=== PATIENT | male | born 1965 | race Caucasian/White ===

== ENCOUNTER 2017-12-02 21:15 | Emergency (ER) | payer OTHER ==
[~2017-12-02] VITALS: Ht 177.8 cm; Wt 95.5 kg
[~2017-12-02 21:15] MED LIST: CLOZ100T PO; LISI-725 PO; MARIJUANA PO; OMEP20CA9 PO; QUET300T2 PO
[2017-12-02 21:38] VITALS: TEMP 36.7; Ht 177.8 cm; Wt 95.5 kg
--- NOTE | 2017-12-02 22:17 | EMERGENCY ROOM VISIT NOTE ---
History Report prepared by Marcello: Nadia Sharif Under the Supervision of: Dr. Bridgett De Anda M.D. First contact with patient: 21:43 Chief Complaint: MENTAL HEALTH EVALUATION Stated Complaint: MHID History of Present Illness The patient is a 52 year old male who presents to the Emergency Room with complaints of a mental health evaluation today. He reports that he is bipolar. The patient states that he wants to harm people that he refers to as "pawns" and "punks." The patient states that he knows a lot of community people do not like him. He reports that he sometimes screams racial slurs in his bipolar rage and that people [place]. The patient states that he gets "pissed off" because he always has people pursuing him. The patient states that he is preparing to fight back if anyone tries to attack him. He states that he is "blood thirsty" and that he wants to kill anyone who tries to attack him. The patient states that people are paranoid about him and assume that if he has a duffel bag that he has a gun in it and will "go on a shooting spree." The patient reports that he cannot settle down anywhere because people are after him and hate him everywhere. 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 He states that he last used crack last week. The patient reports that he is on Seroquel. He denies cigarette use and reports occasional alcohol use. Source of History: patient Onset: today Position: other (global) Quality: other (mental health evaluation ) Timing: constant Review of Systems See HPI for pertinent positives & negatives. A total of 10 systems reviewed and were otherwise negative. Past Medical & Surgical Medical Problems: (1) Bipolar disorder (2) Hypertension Family History Patient reports no known family medical history. Social History Smoking Status: Current Every Day Smoker Alcohol Use: heavy Drug Use: cocaine, marijuana Marital Status: single Housing Status: other Occupation Status: disabled Current/Historical Medications Scheduled Gemfibrozil (Gemfibrozil), 600 MG PO DAILY Lisinopril (Zestril), 20 MG PO DAILY Omeprazole (Prilosec), 20 MG PO DAILY Quetiapine Fumarate (Seroquel Xr), 300 MG PO QPM [Marijuana], 1 DOSE PO DIRECTED Allergies Coded Allergies: No Known Allergies (Verified , 12/02/17) Physical Exam Vital Signs Date Time Temp Pulse Resp B/P (MAP) Pulse Ox O2 Delivery O2 Flow Rate FiO2 12/03/17 02:43 68 18 122/68 99 12/02/17 23:38 77 20 99/60 98 Room Air 12/02/17 21:38 36.7 82 16 122/98 98 Room Air Physical Exam Vital signs reviewed. General: Agitated male, yelling and swearing, threatening to murder those that are threatening him. HEENT: No scleral icterus, PERRLA, neck supple. Atraumatic. Cardiovascular: Regular rate and rhythm, no extra sounds. Pulmonary: Clear to auscultation bilaterally, normal work of breathing. Abdomen: Soft, nontender, nondistended, positive bowel sounds. Musculoskeletal: Atraumatic, no peripheral edema. Neurologic: Patient awake alert and oriented x 3, full strength in all 4 extremities. Cranial nerves 2 through 12 grossly intact. Skin: Warm, dry, no rash Psych: Positive HI, negative SI. Medical Decision & Procedures Laboratory Results 12/02/17 21:36 Red Blood Count 5.28, Mean Corpuscular Volume 86.4, Mean Corpuscular Hemoglobin 30.9, Mean Corpuscular Hemoglobin Concent 35.7, Mean Platelet Volume 9.9, Neutrophils (%) (Auto) 21.2, Lymphocytes (%) (Auto) 74.0, Monocytes (%) (Auto) 3.4, Eosinophils (%) (Auto) 0.8, Basophils (%) (Auto) 0.3, Neutrophils # (Auto) 3.39, Lymphocytes # (Auto) 11.82, Monocytes # (Auto) 0.55, Eosinophils # (Auto) 0.12, Basophils # (Auto) 0.04 12/02/17 21:36 Test 12/02/17 21:36 12/02/17 22:40 White Blood Count 15.97 K/uL (4.8-10.8) Red Blood Count 5.28 M/uL (4.7-6.1) Hemoglobin 16.3 g/dL (14.0-18.0) Hematocrit 45.6 % (42-52) Mean Corpuscular Volume 86.4 fL (80-100) Mean Corpuscular Hemoglobin 30.9 pg (25-34) Mean Corpuscular Hemoglobin Concent 35.7 g/dl (32-36) Platelet Count 293 K/uL (130-400) Mean Platelet Volume 9.9 fL (7.4-10.4) Neutrophils (%) (Auto) 21.2 % Lymphocytes (%) (Auto) 74.0 % Monocytes (%) (Auto) 3.4 % Eosinophils (%) (Auto) 0.8 % Basophils (%) (Auto) 0.3 % Neutrophils # (Auto) 3.39 K/uL (1.4-6.5) Lymphocytes # (Auto) 11.82 K/uL (1.2-3.4) Monocytes # (Auto) 0.55 K/uL (0.11-0.59) Eosinophils # (Auto) 0.12 K/uL (0-0.5) Basophils # (Auto) 0.04 K/uL (0-0.2) RDW Standard Deviation 40.0 fL (36.4-46.3) RDW Coefficient of Variation 12.6 % (11.5-14.5) Immature Granulocyte % (Auto) 0.3 % Immature Granulocyte # (Auto) 0.05 K/uL (0.00-0.02) Smudge Cells PRESENT Blood Smear Review Anion Gap 9.0 mmol/L (3-11) Est Creatinine Clear Calc Drug Dose 86.4 ml/min Estimated GFR () 83.5 Estimated GFR (Non- 72.0 BUN/Creatinine Ratio 29.7 (10-20) Calcium Level 9.6 mg/dl (8.5-10.1) Total Bilirubin 0.6 mg/dl (0.2-1) Aspartate Amino Transf (AST/SGOT) 40 U/L (15-37) Alanine Aminotransferase (ALT/SGPT) 64 U/L (12-78) Alkaline Phosphatase 69 U/L (45-117) Total Protein 8.1 gm/dl (6.4-8.2) Albumin 4.5 gm/dl (3.4-5.0) Globulin 3.6 gm/dl (2.5-4.0) Albumin/Globulin Ratio 1.3 (0.9-2) Thyroid Stimulating Hormone (TSH) 3.160 uIu/ml (0.300-4.500) Salicylates Level < 1.7 mg/dl (2.8-20) Acetaminophen Level < 2 ug/ml (10-30) Ethyl Alcohol mg/dL < 3.0 mg/dl (0-3) Urine Color YELLOW Urine Appearance CLEAR (CLEAR) Urine pH 5.5 (4.5-7.5) Urine Specific [place] 1.024 (1.000-1.030) Urine Protein NEG (NEG) Urine Glucose (UA) NEG (NEG) Urine Ketones NEG (NEG) Urine Occult Blood NEG (NEG) Urine Nitrite NEG (NEG) Urine Bilirubin NEG (NEG) Urine Urobilinogen NEG (NEG) Urine Leukocyte Esterase NEG (NEG) Urine Opiates Screen NEG (NEG) Urine Methadone, Qualitative NEG (NEG) Urine Barbiturates NEG (NEG) Urine Phencyclidine (PCP) Level NEG (NEG) Ur Amphetamine/Methamphetamine NEG (NEG) MDMA (Ecstasy) Screen NEG (NEG) Urine Benzodiazepines Screen NEG (NEG) Urine Cocaine Metabolite NEG (NEG) Urine Marijuana (THC) NEG (NEG) Laboratory results per my review. ED Course 2204: Past medical records reviewed. The patient was evaluated in room A6. A complete history and physical examination was performed. 0130: The patient was signed out to Dr. Eagle. Medical Decision Differential diagnosis: Etiologies such as mood disorder, infection, hypoglycemia, electrolyte abnormalities, cardiac sources, intracerebral event, toxicologic, neurologic, as well as others were entertained. This pt was evaluated and appeared to be in no distress. He was medically cleared and evaluated by ed case manager. Pt was voluntary for admission and accepted to the [facility]. Secure transport was arranged. Medication Reconcilliation Current Medication List: was personally reviewed by me Blood Pressure Screening Patient's blood pressure: Normal blood pressure Impression Primary Impression: Mood disorder Additional Impressions: Homicidal ideation Suicidal ideation Scribe Attestation The scribe's documentation has been prepared under my direction and personally reviewed by me in its entirety. I confirm that the note above accurately reflects all work, treatment, procedures, and medical decision making performed by me. Departure Information Dispostion Still a Patient Referrals No Doctor, Assigned (PCP) Patient Instructions My [facility] Health Problem Qualifiers
[2017-12-02] MEDS ORDERED: LPD600 PO (22:18)
[2017-12-02 22:29] LABS: ALBUMIN 4.5 gm/dl (3.4-5.0); CALCIUM 9.6 mg/dl (8.5-10.1); CREATININE 1.16 mg/dl (0.60-1.40); POTASSIUM 3.8 mmol/L (3.5-5.1)
[2017-12-02 22:37] LABS: HEMATOCRIT 45.6 % (42-52); HEMOGLOBIN 16.3 g/dL (14.0-18.0); MEAN CELL VOLUME 86.4 fL (80-100); MEAN CORPUSCULAR HEMOGLOBIN 30.9 pg (25-34); MEAN CORPUSCULAR HGB CONC 35.7 g/dl (32-36); MEAN PLATELET VOLUME 9.9 fL (7.4-10.4); PLATELET COUNT 293 K/uL (130-400); RED CELL DISTRIBUTION WIDTH CV 12.6 % (11.5-14.5); WHITE BLOOD COUNT 15.97 K/uL (4.8-10.8)
[2017-12-02 22:39] LABS: TOTAL PROTEIN 8.1 gm/dl (6.4-8.2)
[2017-12-02 23:32] LABS: BASO % 0.3 %; BASO ABS # 0.04 K/uL (0-0.2); EOS % 0.8 %; EOS ABS # 0.12 K/uL (0-0.5); IG# 0.05 K/uL (0.00-0.02); LYMPH ABS # 11.82 K/uL (1.2-3.4); MONO % 3.4 %; MONO ABS # 0.55 K/uL (0.11-0.59); NEUT % 21.2 %; NEUT ABS # 3.39 K/uL (1.4-6.5)
[2017-12-03 02:43] VITALS: BP 122/68; PULSE 68; O2SAT 99
== END 2017-12-03 02:43 ==
LOC: EDBD 21:15 → C.EDA 21:16
DX: F39 Unspecified mood [affective] disorder (principal); R45.850 Homicidal ideations; R45.851 Suicidal ideations

== ENCOUNTER 2018-06-18 20:49 | Emergency (ER) | payer OTHER ==
[~2018-06-18] VITALS: Ht 177.8 cm; Wt 93.6 kg
[~2018-06-18 20:49] MED LIST changes: -CLOZ100T PO; +GEMF600T3 PO; -LISI-725 PO; +LISI20TA3 PO; -MARIJUANA PO; -OMEP20CA9 PO; +PRLSR20 PO; -QUET300T2 PO; +QUET400T2 PO
[2018-06-18 20:53] VITALS: TEMP 36.4; Ht 177.8 cm; Wt 93.6 kg
[2018-06-18 21:57] LABS: HEMATOCRIT 48.1 % (42-52); HEMOGLOBIN 17.2 g/dL (14.0-18.0); MEAN CELL VOLUME 84.4 fL (80-100); MEAN CORPUSCULAR HEMOGLOBIN 30.2 pg (25-34); MEAN CORPUSCULAR HGB CONC 35.8 g/dl (32-36); MEAN PLATELET VOLUME 9.7 fL (7.4-10.4); PLATELET COUNT 249 K/uL (130-400); WHITE BLOOD COUNT 16.25 K/uL (4.8-10.8)
[2018-06-18 22:23] LABS: ALBUMIN 4.6 gm/dl (3.4-5.0); CALCIUM 10.2 mg/dl (8.5-10.1); CREATININE 1.28 mg/dl (0.60-1.40); POTASSIUM 3.8 mmol/L (3.5-5.1); TOTAL PROTEIN 8.2 gm/dl (6.4-8.2)
[2018-06-18 22:39] VITALS: BP 117/70; PULSE 84; O2SAT 98
[2018-06-18 22:44] LABS: BASO % 0.3 %; BASO ABS # 0.05 K/uL (0-0.2); EOS % 0.6 %; IG# 0.06 K/uL (0.00-0.02); LYMPH % 58.2 %; LYMPH ABS # 9.45 K/uL (1.2-3.4); MONO % 3.7 %; NEUT % 36.8 %; NEUT ABS # 5.99 K/uL (1.4-6.5)
[2018-06-18] MEDS ORDERED: LPD600 PO (22:46)
[2018-06-18] MEDS ORDERED: QUET1TAB10 PO (22:48)
--- NOTE | 2018-06-19 00:19 | EMERGENCY ROOM VISIT NOTE ---
History Report prepared by Marcello: Raleigh Crump Under the Supervision of: Dr. Ricardo Ramirez M.D. First contact with patient: 21:18 Chief Complaint: UNABLE TO VOID Stated Complaint: CANT URINATE, TOOK FAT BURNER PILLS 3X DAYS Nursing Triage Summary: Patient reports taking new suppliments for exercise and weight loss recently. Patient recently noticed a decrease in his urinary output. Last urinary output at 1930. History of Present Illness The patient is a 52 year old male who presents to the Emergency Room with complaints of intermittent difficulty urinating beginning yesterday. He states that he has to force himself to urinate. He denies any pain with urination or hematuria. He states that his penis seems shriveled, He states that he has been drinking a lot of water. He notes a history of kidney stones, but states that his current symptoms feel different. He denies any abdominal or back pain. He notes that he has been taking fat burning pills that contain creatine. He states he has taken "prostate additives" in the past. He notes that he has been riding his bicycle but otherwise denies any strenuous activity. He did just urinate in the ED. Source of History: patient Onset: yesterday Position: other (Bladder) Quality: other (difficulty urinating) Timing: intermittent Modifying Factors (Relieving): other (none) Associated Symptoms: No fevers, No abdominal pain Review of Systems See HPI for pertinent positives & negatives. A total of 10 systems reviewed and were otherwise negative. Past Medical & Surgical Medical Problems: (1) Bipolar disorder (2) Hypertension (3) Kidney stones Family History Patient reports no known family medical history. Social History Smoking Status: Never Smoker Alcohol Use: heavy Drug Use: cocaine, marijuana Marital Status: single Housing Status: other Occupation Status: disabled Current/Historical Medications Scheduled Gemfibrozil (Gemfibrozil), 600 MG PO DAILY Lisinopril (Prinivil), 20 MG PO DAILY Omeprazole (Prilosec), 40 MG PO DAILY Quetiapine Fumarate (Seroquel Xr), 400 MG PO HS Quetiapine Fumarate (Seroquel), 200 MG PO UD Allergies Coded Allergies: No Known Allergies (Verified , 12/02/17) Physical Exam Vital Signs Date Time Temp Pulse Resp B/P (MAP) Pulse Ox O2 Delivery O2 Flow Rate FiO2 06/18/18 22:39 84 16 117/70 98 06/18/18 20:53 36.4 117 18 125/83 96 Room Air Physical Exam Constitutional: Vital signs reviewed. Eyes: Pupils are equal round reactive to light. Conjunctiva are noninjected. ENT: Pharynx is clear without erythema or exudate. Mucous membranes are moist. Neck supple without meningeal signs. Respiratory: Clear to auscultation bilaterally. Breath sounds are equal bilaterally. Cardiovascular: Regular rate and rhythm. No rubs or gallops. GI: Soft, nondistended and nontender. Bowel sounds are present. Musculoskeletal: No peripheral edema. No lower extremity tenderness. No CVA tenderness. Integumentary: No cyanosis. Neurological: The patient is awake and alert. No focal deficits. Psychiatric: Normal affect. Genitourinary: Normal penis. Medical Decision & Procedures Laboratory Results 06/18/18 21:35 Red Blood Count 5.70, Mean Corpuscular Volume 84.4, Mean Corpuscular Hemoglobin 30.2, Mean Corpuscular Hemoglobin Concent 35.8, Mean Platelet Volume 9.7, Neutrophils (%) (Auto) 36.8, Lymphocytes (%) (Auto) 58.2, Monocytes (%) (Auto) 3.7, Eosinophils (%) (Auto) 0.6, Basophils (%) (Auto) 0.3, Neutrophils # (Auto) 5.99, Lymphocytes # (Auto) 9.45, Monocytes # (Auto) 0.60, Eosinophils # (Auto) 0.10, Basophils # (Auto) 0.05 06/18/18 21:35 Test 06/18/18 21:30 06/18/18 21:35 Urine Color YELLOW Urine Appearance CLEAR (CLEAR) Urine pH 6.0 (4.5-7.5) Urine Specific [place] 1.014 (1.000-1.030) Urine Protein 2+ (NEG) Urine Glucose (UA) NEG (NEG) Urine Ketones NEG (NEG) Urine Occult Blood NEG (NEG) Urine Nitrite NEG (NEG) Urine Bilirubin NEG (NEG) Urine Urobilinogen NEG (NEG) Urine Leukocyte Esterase NEG (NEG) Urine WBC (Auto) 1-5 /hpf (0-5) Urine RBC (Auto) 0-4 /hpf (0-4) Urine Hyaline Casts (Auto) 1-5 /lpf (0-5) Urine Epithelial Cells (Auto) >30 /lpf (0-5) Urine Bacteria (Auto) NEG (NEG) Urine Renal Epithelial Cells 0-5 /lpf (0-5) Urine Pathogenic Casts /lpf (0) White Blood Count 16.25 K/uL (4.8-10.8) Red Blood Count 5.70 M/uL (4.7-6.1) Hemoglobin 17.2 g/dL (14.0-18.0) Hematocrit 48.1 % (42-52) Mean Corpuscular Volume 84.4 fL (80-100) Mean Corpuscular Hemoglobin 30.2 pg (25-34) Mean Corpuscular Hemoglobin Concent 35.8 g/dl (32-36) Platelet Count 249 K/uL (130-400) Mean Platelet Volume 9.7 fL (7.4-10.4) Neutrophils (%) (Auto) 36.8 % Lymphocytes (%) (Auto) 58.2 % Monocytes (%) (Auto) 3.7 % Eosinophils (%) (Auto) 0.6 % Basophils (%) (Auto) 0.3 % Neutrophils # (Auto) 5.99 K/uL (1.4-6.5) Lymphocytes # (Auto) 9.45 K/uL (1.2-3.4) Monocytes # (Auto) 0.60 K/uL (0.11-0.59) Eosinophils # (Auto) 0.10 K/uL (0-0.5) Basophils # (Auto) 0.05 K/uL (0-0.2) RDW Standard Deviation 39.0 fL (36.4-46.3) RDW Coefficient of Variation 13.0 % (11.5-14.5) Immature Granulocyte % (Auto) 0.4 % Immature Granulocyte # (Auto) 0.06 K/uL (0.00-0.02) Smudge Cells PRESENT Anion Gap 12.0 mmol/L (3-11) Est Creatinine Clear Calc Drug Dose 77.6 ml/min Estimated GFR () 74.1 Estimated GFR (Non- 63.9 BUN/Creatinine Ratio 13.0 (10-20) Calcium Level 10.2 mg/dl (8.5-10.1) Total Bilirubin 0.6 mg/dl (0.2-1) Direct Bilirubin 0.2 mg/dl (0-0.2) Aspartate Amino Transf (AST/SGOT) 58 U/L (15-37) Alanine Aminotransferase (ALT/SGPT) 77 U/L (12-78) Alkaline Phosphatase 70 U/L (45-117) Total Creatine Kinase 1166 U/L (39-308) Total Protein 8.2 gm/dl (6.4-8.2) Albumin 4.6 gm/dl (3.4-5.0) Laboratory results as reviewed by me. ED Course 2123: The patient was evaluated in room C8. A complete history and physical exam was performed. 2229: I discussed results with the patient. I instructed him to stop taking diet pills and to follow up with his PCP for his elevated white count. The patient was discharged. Medical Decision This is a 52-year-old male who presents with difficulty urinating. Differential diagnosis includes BPH, UTI, renal failure, rhabdomyolysis. I did perform a limited focused review of portions of the patient's old chart on the electronic medical record. The patient was in the hospital June 02 for homicidal ideation, and was transferred to the [facility]. I did evaluate the patient as noted above. The patient has had difficulty urinating but he urinated in the ED. His urine was clear. I did order and personally review the patient's urine and as described above. There is no evidence of infection. I did order and review the patient's blood work as noted in the electronic medical record. CPK elevated but renal function is normal. His white blood cell count is elevated. This was noted on 2 prior occasions this year. I did discuss the test results with the patient. He states he knows about the elevated white blood cell count and will follow up with his doctor regarding this. He will stop taking the diet pills. He was discharged in good condition. Medication Reconcilliation Current Medication List: was personally reviewed by me Blood Pressure Screening Patient's blood pressure: Normal blood pressure Blood pressure disposition: Did not require urgent referral Impression Primary Impression: Dysuria Additional Impression: Leukocytosis Scribe Attestation The scribe's documentation has been prepared under my direct and personally reviewed by me in its entirety. I confirm that the note above accurately reflects all work, treatment, procedures, and medical decision making performed by me. Departure Information Dispostion Home / Self-Care Referrals No Doctor, Assigned (PCP) Forms HOME CARE DOCUMENTATION FORM, IMPORTANT VISIT INFORMATION, WORK / SCHOOL INSTRUCTIONS Patient Instructions My [facility] Additional Instructions You have been examined and treated today on an emergency basis only. This is not a substitute for, or an effort to provide, complete comprehensive medical care. It is impossible to recognize and treat all injuries or illnesses in a single emergency department visit. It is therefore important that you follow up closely with your physician. Call as soon as possible for an appointment. Have your doctor recheck your white blood cell count which was elevated today and on 2 other occasions you were here this year.. Return for worsening symptoms or if you develop fever, vomiting, very dark urine or any other concerning symptoms. Problem Qualifiers Additional Impression: Leukocytosis Leukocytosis type: unspecified Qualified Codes: D72.829 - Elevated white blood cell count, unspecified
== END 2018-06-18 22:40 | disposition home or self-care (01) ==
LOC: C.EDB 20:51 → C.EDC 22:40
DX: R30.0 Dysuria (principal); I10 Essential (primary) hypertension; D72.829 Elevated white blood cell count, unspecified; R74.8 Abnormal levels of other serum enzymes

== ENCOUNTER 2024-06-11 17:49 | Inpatient (IN) ==
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
[2024-06-11 18:38] LABS: Hemoglobin 15.3 g/dl (14.0-18.0); Mean Corpuscular Hemoglobin 30.1 pg (25.0-34.0); Mean Corpuscular Volume 88.4 fL (80.0-100.0); Mean Platelet Volume 9.2 fL (9.4-12.4); Nucleated RBC # (auto) 0.03 K/uL (0.00-0.12); Nucleated RBC % (auto) 0.2 %; Platelet Count 241 K/uL (130-400); RDW Coefficient of Variation 12.2 % (11.5-14.5); RDW Standard Deviation 39.7 fL (36.4-46.3); Red Blood Count 5.09 M/uL (4.70-6.10)
[2024-06-11 18:53] LABS: Albumin Globulin Ratio 1.7 (0.9-2); Albumin Level 4.9 gm/dl (3.4-5.0); BUN Creatinine Ratio 25.2 (10-20); Bilirubin,Total 0.5 mg/dl (0.2-1.0); Calcium 10.6 mg/dl (8.6-10.3); Creatinine Clr Calc Pharmacy 74.1 ml/min; Est GFR (African American) 71.7 ml/min; Est GFR (Non-African American) 61.9 ml/min; Globulin 2.9 gm/dl (2.5-4.0); Potassium 4.6 mmol/L (3.5-5.1); Total Protein 7.8 gm/dl (6.0-8.3)
[2024-06-11 19:09] LABS: Acetaminophen < 3 ug/ml (10-30); Salicylate < 3.0 mg/dl (3.0-30); Thyroid Stimulating Hormone 3.234 uIu/ml (0.300-4.500)
[2024-06-11 19:28] LABS: Basophils # (auto) 0.09 K/uL (0.00-0.20); Basophils % (auto) 0.6 %; Eosinophils # (auto) 0.16 K/uL (0.00-0.50); Immature Granulocytes # (auto) 0.05 K/uL (0.01-0.20); Immature Granulocytes % (auto) 0.3 %; Lymphocytes # (auto) 9.92 K/uL (1.20-3.40); Lymphocytes % (auto) 60.9 %; Monocytes % (auto) 3.7 %; Neutrophils # (auto) 5.48 K/uL (1.40-6.50); Neutrophils % (auto) 33.5 %; Smudge Cells Present
[2024-06-11 21:17] LABS: Appearance Urine Clear (Clear); Bilirubin Urine Negative (Negative); Blood Urine Negative (Negative); Color Urine Yellow; Glucose Urine UA Negative (Negative); Ketones Urine Negative (Negative); Leukocyte Esterase Urine Negative (Negative); Nitrite Urine Negative (Negative); Protein Urine Negative (Negative); Specific Gravity Urine 1.019 (1.000-1.030); Urobilinogen Urine Negative (Negative)
[2024-06-11 21:40] LABS: Amphetamines+Metham, Urine Neg (Neg); Barbiturates, Urine Neg (Neg); Benzodiazepine, Urine Neg (Neg); Cocaine, Urine Neg (Neg); Fentanyl, Urine Neg (Neg); MDMA (Ecstacy), Urine Neg (Neg); Marijuana, Urine Pos (Neg); Methadone, Urine Neg (Neg); Opiate, Urine Neg (Neg); Phencyclidine, Urine Neg (Neg)
[2024-06-11] MEDS: QUEtiapine FUMARATE 300 MG TABLET PO STA (22:08)
[2024-06-12] MEDS ORDERED: hydrOXYzine HCl 25 MG TAB PO PRN ×2 (00:23)
[2024-06-12] MEDS ORDERED: MAGNESIUM HYDROXIDE SUSP 30 ML UDC PO PRN (00:23)
[2024-06-12] MEDS ORDERED: BISMUTH SUBSALICYLATE LIQD 236 ML PO PRN (00:23)
[2024-06-12] MEDS ORDERED: ACETAMINOPHEN 325 MG TAB PO PRN (00:23)
[2024-06-12] MEDS ORDERED: SODIUM CHLORIDE 0.65% NA SOLN 45 ML (OCEAN) PRN (00:23)
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
[2024-06-12] MEDS ORDERED: QUEtiapine FUMARATE 100 MG TABLET PO PRN (14:09)
[2024-06-12] MEDS: DIVALPROEX DELAY RELEASE 500 MG TAB PO SCH (21:01)
[2024-06-12] MEDS: QUEtiapine FUMARATE 300 MG TABLET PO SCH (21:01)
[2024-06-12] MEDS ORDERED: QUEtiapine FUMARATE 300 MG TABLET PO SCH (22:00)
[2024-06-13 07:46] LABS: Chol HDL Ratio 5.8 (0-5)
[2024-06-13 08:12] LABS: Estimated Average Glucose 148 mg/dl; Hemoglobin A1C 6.8 % (4.5-5.6)
--- NOTE | 2024-06-13 09:07 | Psychiatric Progress Note ---
Date of Service June 13, 2024 Impression / Recommendations Impression DAYRON Dockery" is a 58-year-old M who currently lives with a friend in [place], has a history of BPAD and cocaine use disorder, and was admitted on 06/11/24 23:32 on a 201 voluntary commitment for paranoia, delusions and feeling unsafe. Diagnostically consistent with unspecified mood disorder with differential including episode of david with psychosis due to BPAD versus substance-induced mood changes from delta 8 versus delusional disorder. A: Sleeping well and no evidence for psychomotor activation so higher suspicion for substance-induced or delusional disorder leading to paranoia. [place] attempted, he doesn't want to make any changes to his delta 8 use. Tolerating Depakote well so far. He consents to restarting [employer] metformin given elevated HbA1c and atorvastatin for elevated cholesterol. TGs also reviewed and elevated. He is not interested in making any changes to his Seroquel. MNPR due to anger, irritability and significant paranoia/persecutory delusions to extent cannot tolerate a roommate as very suspicious of others especially males Overall, I spent a total of 35 minutes on this case including meeting with the patient, reviewing the chart, nursing report, multidisciplinary team meeting, orders, and documentation. (1) Mood disorder: (2) Paranoia: (3) Bipolar disorder: (4) Marijuana use: (5) Delusions: Plan 06/13/2024: Continue current medications and tx plan 06/12/2024: The patient was admitted to the [facility] ([facility] unit) on q15 min checks (behavioral with suicide precautions) for safety. The patient will participate in group, recreational, and milieu therapies and will be offered additional individual and family sessions as clinically appropriate. -Continue Seroquel 600mg HS -Seroquel 100mg BID prn for agitation/psychosis -Start Depakote DR 250mg qAM and 500mg HS -Fasting lipid panel and glucose, HbA1c in the morning Inventory Assets Strengths: supportive relationships, willing to get treatment Needs: safety and stabilization, medication adjustment, additional coping skills, increased outpatient services Suicide Risk Level Suicide Risk Level: Moderate (q15 min suicide checks) (denies SI but with psychic distress, anxiety and psychosis with mood lability, feels safe in the hospital) Risk Factors Assessment Male: Yes : Yes Do You Have Access To A Gun?: No Health Problems: No Mental Health Diagnoses: Yes Substance Use Disorders: Yes (history of cocaine use disorder, in early remission; delta 8 use) Previous Attempt: Yes Family History of Suicide: No Previous Psychiatric Hospitalization: Yes Hopelessness: No Protective Factors Assessment Employed: No Supportive Family: Yes (brother) Good Rapport with Provider: Yes (PCP) Interval History Identifying Information DAYRON Dockery" is a 58-year-old M who currently lives with a friend in [place], has a history of BPAD and cocaine use disorder, and was admitted on 06/11/24 23:32 on a 201 voluntary commitment for paranoia, delusions and feeling unsafe. Chief Complaint "I'm beguiled". Review of Systems Sleep Information Total Hours of Sleep: 8 Sleep Comments: Meal Information Percent Meal Consumed - Breakfast: 100 Percent Meal Consumed - Lunch: 100 Percent Meal Consumed - Dinner: 100 Subjective Subjective Patient was seen & assessed and interval progress reviewed with treatment team nursing and social work. Remains fixated on frustration that treatment team paperwork referenced HI toward college students. He again describes that he was not every homicidal toward college students but only angry at those who target in the community, who he clarifies are not college students, from past substance use. 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 Feels that in [place] "whenever I come back I'm a piranha". Thinks he is going to stay in a motel in [place] after he leaves the hospital "for a week" to make sure no one is targeting him there, if they are then he plans to move back to [facility] as he's lived there before and liked it there. Doesn't want us to work on any aftercare, as prefers to set this up once he knows for certain where he will be staying longer term. Reviewed labwork, he reports he was on metformin prior to coming to the hospital and wants to continue this. Wants to start statin for elevated cholesterol. Slept well last night. Remains largely isolated to his room, though he likes the unit here stating the other patients seem friendly but he doesn't want to attend groups with them due to his "social anxiety". Appreciative for the medication changes and treatment he is receiving. Physical Exam Psychiatric Orientation: alert and oriented x 3 Apperance: appropriately dressed Eye Contact: good eye contact Motor Behavior: no abnormal motor movements Speech: normal rate/rhythm/volume of speech (loud) Affect: + anxious affect and + irritable affect Mood: + anxious mood and + irritable mood Thought Process: + perseveration Thought Content: + preoccupation and + paranoid Suicidal Thoughts: denies suicidal thoughts Homicidal Thoughts: denies homicidal thoughts Hallucinations: no auditory hallucinations and no visual hallucinations Cognition: recent memory grossly intact, remote memory grossly intact, attention grossly intact and language grossly intact Estimated Intelligence: consistent with education level Insight: + limited insight Judgment: + limited judgement Vital Signs (Past 24 Hours) Last Vital Signs Temp 37 C 06/11/24 22:43 Pulse 84 06/13/24 06:36 Resp 18 06/13/24 06:35 BP 114/77 06/13/24 06:36 Pulse Ox 97 06/13/24 06:35 O2 Del Method Room Air 06/13/24 06:35 Results & Data ([facility]) Laboratory Results Laboratory Results - last 24 hr 06/13/24 06:47 Fasting Glucose 132 H Estimat Average Glucose 148 Hemoglobin A1c 6.8 H Triglycerides 190 H Cholesterol 213 H LDL Cholesterol, Calc 138 VLDL Cholesterol, Calc 38 H HDL Cholesterol 37 Cholesterol/HDL Ratio 5.8 H Current Inpatient Medications Current Inpatient Medications: Current Inpatient Medications Acetaminophen (Acetaminophen 325 Mg Tab) 650 mg PO Q4H PRN PRN Reason: Headache or Minor Fever Stop: 07/12/24 00:22 Al Hydrox/Mg Hydrox/Simethicone (Aluminum/Magnesium Susp 30 Ml Udc) 30 ml PO Q4H PRN PRN Reason: GI Upset Stop: 07/12/24 00:22 Bismuth Subsalicylate (Bismuth Subsalicylate Liqd 236 Ml) 15 ml PO PRN PRN PRN Reason: Loose Stool Stop: 07/12/24 00:22 Divalproex Sodium (Divalproex Delay Release 250 Mg Tabec) 250 mg PO QAM JONATHAN Stop: 07/13/24 08:59 Divalproex Sodium (Divalproex Delay Release 500 Mg Tab) 500 mg PO HS JONATHAN Stop: 07/12/24 21:59 Last Admin: 06/12/24 21:01 Dose: 500 mg Hydroxyzine HCl (Hydroxyzine Hcl 25 Mg Tab) 50 mg PO HSZ PRN PRN Reason: Insomnia Stop: 07/12/24 00:22 Hydroxyzine HCl (Hydroxyzine Hcl 25 Mg Tab) 25 mg PO Q4H PRN PRN Reason: Anxiety Stop: 07/12/24 00:22 Lisinopril (Lisinopril 40 Mg Tab) 40 mg PO DAILY JONATHAN Stop: 07/13/24 08:59 Magnesium Hydroxide (Magnesium Hydroxide Susp 30 Ml Udc) 30 ml PO DAILY PRN PRN Reason: Constipation Stop: 07/12/24 00:22 Pantoprazole Sodium (Pantoprazole 40 Mg Tab) 40 mg PO QAM JONATHAN Stop: 07/13/24 08:59 Quetiapine Fumarate (Quetiapine Fumarate 300 Mg Tablet) 600 mg PO HS JONATHAN Stop: 07/12/24 21:59 Last Admin: 06/12/24 21:01 Dose: 600 mg Quetiapine Fumarate (Quetiapine Fumarate 100 Mg Tablet) 100 mg PO BID PRN PRN Reason: Agitation/Psychosis Stop: 07/12/24 20:59 Sodium Chloride (Sodium Chloride 0.65% Na Soln 45 Ml ([place])) 1 - 2 sprays NA PRN PRN PRN Reason: Nasal Dryness/Congestion Stop: 07/12/24 00:22 Tamsulosin HCl (Tamsulosin Hcl 0.4 Mg Cap) 0.4 mg PO DAILY JONATHAN Stop: 07/13/24 08:59 Mental Health & Subst Abuse Tx Therapist Name of Therapist: n/a Court Worker Name of Court Worker: n/a Post Discharge Appointments Primary Care Physician Name Of Family Doctor/PCP: none (3) Bipolar disorder Active/Remission status: currently active Current bipolar episode type: mixed Current episode severity: moderate Qualified Code(s): F31.62 - Bipolar di sorder, current episode mixed, moderate
[2024-06-13] MEDS: PANTOprazole 40 MG TAB PO SCH (09:13)
[2024-06-13] MEDS: DIVALPROEX DELAY RELEASE 250 MG TABEC PO SCH (09:13)
[2024-06-13] MEDS: lisinopril 40 MG TAB PO SCH (09:13)
[2024-06-13] MEDS: TAMSULOSIN HCL 0.4 MG CAP PO SCH (09:13)
[2024-06-13] MEDS: ALUMINUM/MAGNESIUM SUSP 30 ML UDC PO PRN (11:00)
[2024-06-13] MEDS: ATORVASTATIN 10 MG TAB PO SCH (12:41)
[2024-06-13] MEDS: metFORMIN HCL ER 500 MG TABCR PO SCH (21:34)
--- NOTE | 2024-06-14 09:07 | Psychiatric Progress Note ---
Date of Service June 14, 2024 Impression / Recommendations Impression DAYRON Dockery" is a 58-year-old M who currently lives with a friend in [place], has a history of BPAD and cocaine use disorder, and was admitted on 06/11/24 23:32 on a 201 voluntary commitment for paranoia, delusions and feeling unsafe. Diagnostically consistent with unspecified mood disorder with differential including episode of david with psychosis due to BPAD versus substance-induced mood changes from delta 8 versus delusional disorder. A: Mood stable and significant lessening of perseveration and irritability today. No evidence of paranoia today which suggests possible role of delta 8/substance-induced vs aspect of hypomania which is now improved. Motivational interviewing regarding delta 8 use, he'll consider possibly adjusting his use though doesn't view it as problematic. Denies any SI and HI. Continues to sleep well. Appreciative for care he is receiving. Likes being on the statin and metformin. Tolerating Depakote well so far, discussed option in the future to consider consolidating the dose at HS or switching to ER formulation at HS should he experience excessive daytime sedation. MNPR due to recent anger, irritability and history of significant paranoia/suspicion of others especially males Overall, I spent a total of 30 minutes on this case including meeting with the patient, reviewing the chart, nursing report, multidisciplinary team meeting, orders, and documentation. (1) Mood disorder: (2) Paranoia: (3) Bipolar disorder: (4) Marijuana use: (5) Delusions: Plan 06/14/2024: Continue current medications and tx plan. Depakote level in AM. 06/13/2024: Continue current medications and tx plan 06/12/2024: The patient was admitted to the [facility] ([facility] mental health unit) on q15 min checks (behavioral with suicide precautions) for safety. The patient will participate in group, recreational, and milieu therapies and will be offered additional individual and family sessions as clinically appropriate. -Continue Seroquel 600mg HS -Seroquel 100mg BID prn for agitation/psychosis -Start Depakote DR 250mg qAM and 500mg HS -Fasting lipid panel and glucose, HbA1c in the morning Inventory Assets Strengths: supportive relationships, willing to get treatment Needs: safety and stabilization, medication adjustment, additional coping skills, increased outpatient services Suicide Risk Level Suicide Risk Level: Moderate (q15 min suicide checks) (denies SI, mood improving, feels safe in the hospital) Risk Factors Assessment Male: Yes : Yes Do You Have Access To A Gun?: No Health Problems: No Mental Health Diagnoses: Yes Substance Use Disorders: Yes (history of cocaine use disorder, in early remission; delta 8 use) Previous Attempt: Yes Family History of Suicide: No Previous Psychiatric Hospitalization: Yes Hopelessness: No Protective Factors Assessment Employed: No Supportive Family: Yes (brother) Good Rapport with Provider: Yes (PCP) Interval History Identifying Information DAYRON Dockery" is a 58-year-old M who currently lives with a friend in [place], has a history of BPAD and cocaine use disorder, and was admitted on 06/11/24 23:32 on a 201 voluntary commitment for paranoia, delusions and feeling unsafe. Chief Complaint "I'm a little bored, at home I'm on the internet all day". Review of Systems Sleep Information Total Hours of Sleep: 7.45 Sleep Comments: HS Seroquel Meal Information Percent Meal Consumed - Breakfast: 100 Percent Meal Consumed - Lunch: 100 Percent Meal Consumed - Dinner: 75 Subjective Subjective Patient was seen & assessed and interval progress reviewed with treatment team nursing and social work. Not attending any groups. Largely isolative to his room but out of his room for all of his meals. Reports his mood is stable but bored due to lack of access to his computer/the ability to be online. Likes the Depakote, though finds it might cause him to be a little bit more tired at times, but wants to continue with it as it is. Agreeable to AM level. No side effects from Lipitor or Metformin. Denies SI and HI. Hopeful for discharge tomorrow. Appreciative of help. Recognizes moments when he interrupts noting "here I go overtalking you again, I don't like when people do that to me, here I am being a hypocrite" and then stops himself from continuing to talk and waits again to speak. Sleeping well. Physical Exam Psychiatric Orientation: alert and oriented x 3 Apperance: appropriately dressed Eye Contact: good eye contact Motor Behavior: no abnormal motor movements Speech: normal rate/rhythm/volume of speech (loud, somewhat monotone) Affect: + constricted affect Mood: no depressed mood, no anxious mood and no irritable mood Thought Process: goal directed thought process Thought Content: reality based without delusions Suicidal Thoughts: denies suicidal thoughts Homicidal Thoughts: denies homicidal thoughts Hallucinations: no auditory hallucinations and no visual hallucinations Cognition: recent memory grossly intact, remote memory grossly intact, attention grossly intact and language grossly intact Estimated Intelligence: consistent with education level Insight: + fair insight Judgment: + fair judgement Vital Signs (Past 24 Hours) Last Vital Signs Temp 36.5 C 06/14/24 06:42 Pulse 98 H 06/14/24 06:43 Resp 16 06/14/24 06:42 BP 120/82 06/14/24 06:43 Pulse Ox 97 06/13/24 06:35 O2 Del Method Room Air 06/13/24 06:35 Results & Data ([facility]) Current Inpatient Medications Current Inpatient Medications: Current Inpatient Medications Acetaminophen (Acetaminophen 325 Mg Tab) 650 mg PO Q4H PRN PRN Reason: Headache or Minor Fever Stop: 07/12/24 00:22 Al Hydrox/Mg Hydrox/Simethicone (Aluminum/Magnesium Susp 30 Ml Udc) 30 ml PO Q4H PRN PRN Reason: GI Upset Stop: 07/12/24 00:22 Last Admin: 06/13/24 16:41 Dose: 30 ml Atorvastatin Calcium (Atorvastatin 10 Mg Tab) 10 mg PO QAM JONATHAN Stop: 07/13/24 11:14 Last Admin: 06/14/24 08:57 Dose: 10 mg Bismuth Subsalicylate (Bismuth Subsalicylate Liqd 236 Ml) 15 ml PO PRN PRN PRN Reason: Loose Stool Stop: 07/12/24 00:22 Divalproex Sodium (Divalproex Delay Release 250 Mg Tabec) 250 mg PO QAM JONATHAN Stop: 07/13/24 08:59 Last Admin: 06/14/24 08:57 Dose: 250 mg Divalproex Sodium (Divalproex Delay Release 500 Mg Tab) 500 mg PO HS JONATHAN Stop: 07/12/24 21:59 Last Admin: 06/13/24 21:35 Dose: 500 mg Hydroxyzine HCl (Hydroxyzine Hcl 25 Mg Tab) 50 mg PO HSZ PRN PRN Reason: Insomnia Stop: 07/12/24 00:22 Hydroxyzine HCl (Hydroxyzine Hcl 25 Mg Tab) 25 mg PO Q4H PRN PRN Reason: Anxiety Stop: 07/12/24 00:22 Lisinopril (Lisinopril 40 Mg Tab) 40 mg PO DAILY JONATHAN Stop: 07/13/24 08:59 Last Admin: 06/14/24 08:57 Dose: 40 mg Magnesium Hydroxide (Magnesium Hydroxide Susp 30 Ml Udc) 30 ml PO DAILY PRN PRN Reason: Constipation Stop: 07/12/24 00:22 Metformin HCl (Metformin Hcl Er 500 Mg Tabcr) 500 mg PO QDD JONATHAN Stop: 07/13/24 20:59 Last Admin: 06/13/24 21:34 Dose: 500 mg Pantoprazole Sodium (Pantoprazole 40 Mg Tab) 40 mg PO QAM JONATHAN Stop: 07/13/24 08:59 Last Admin: 06/14/24 08:57 Dose: 40 mg Quetiapine Fumarate (Quetiapine Fumarate 300 Mg Tablet) 600 mg PO HS JONATHAN Stop: 07/12/24 21:59 Last Admin: 06/13/24 21:34 Dose: 600 mg Quetiapine Fumarate (Quetiapine Fumarate 100 Mg Tablet) 100 mg PO BID PRN PRN Reason: Agitation/Psychosis Stop: 07/12/24 20:59 Sodium Chloride (Sodium Chloride 0.65% Na Soln 45 Ml ([place])) 1 - 2 sprays NA PRN PRN PRN Reason: Nasal Dryness/Congestion Stop: 07/12/24 00:22 Tamsulosin HCl (Tamsulosin Hcl 0.4 Mg Cap) 0.4 mg PO DAILY JONATHAN Stop: 07/13/24 08:59 Last Admin: 06/14/24 08:56 Dose: 0.4 mg Mental Health & Subst Abuse Tx Therapist Name of Therapist: n/a Streetcar Starter Name of Streetcar Starter: n/a Post Discharge Appointments Primary Care Physician Name Of Family Doctor/PCP: none (3) Bipolar disorder Active/Remission status: currently active Current bipolar episode type: mixed Current episode severity: moderate Qualified Code(s): F31.62 - Bipolar disorder, current episode mixed, moderate
--- NOTE | 2024-06-15 08:59 | Discharge Summary ---
Date of Service June 15, 2024 History of Present Illness Pedro presented to the emergency room seeking help due to feeling "claustrophobic" and trapped by the sense that anywhere he goes he is targeted by others. States he wishes he could go somewhere and be left alone "so I can live out my 60s and 70s in peace". He presents with ongoing concerns about feeling targeted by others in his community, which he reports began in 2010 after an incident involving a noise complaint. He states he has experienced non-verbal cues and harassment from people, leading to anger and frustration. Feels that previous information about him having possible HI toward [employer] college students is "absolutely false" and that he doesn't have any problems with [employer] students. Rather he feels his issues are with some young men in the community who drive around in cars with tinted windows and laugh at him and talk about him and want to harm him. Denies that he would ever hurt these men, but would respond with violence if he needed to protect himself if they were violent toward him.However, he wants to avoid this at all costs and is the reason he is hoping to move far away to somewhere no one will bother him. He is considering moving away to avoid the perceived negativity and harassment from others in his community but feels he is targeted in other parts of [facility] due to history of cocaine use. He has a history of cocaine use, with last use 6 months ago. He reports having 3 relapses over the past 16 months but has been mostly clean for 16 months. He has a history of bipolar disorder and public outbursts of anger. He doesn't feel he is currently experiencing any episode of hypomania nor david. Reports his sleep has been good. He denies any current SI or HI. He has a past suicide attempt in 1993 by overdosing on sleep medication when he felt lonely and in despair at that time, though he now prefers to be alone. He is currently taking 600mg Seroquel nightly for bipolar disorder and has used trazodone in the past. Likes Seroquel and finds this helpful. Apparently utilizes the local crisis service frequently, calling them almost daily when upset or feeling targeted by others. He is interested in some possible medication adjustments and a short admission with goal of then moving somewhere outside of town. Physical Exam Vital Signs (Past 24 Hours) Last Vital Signs Temp 36.5 C 06/15/24 08:14 Pulse 88 06/15/24 08:14 Resp 16 06/15/24 08:14 BP 103/77 06/15/24 08:14 Pulse Ox 97 06/15/24 08:14 O2 Del Method Room Air 06/13/24 06:35 See admission H&P and DOD summary. Principal Diagnosis Bipolar Affective Disorder Psychiatric Data See daily stay summary. In short, safety was maintained and the patient was cooperative with care though largely isolative to his room as he declined to participate in any groups that involved other patients preferring to spend time 1-on-1 with staff/providers. He did eat all of his meals around his peers and spent some time walking around the unit. He slept well. Motivational interviewing was done regarding his substance use, particularly regarding concern that delta 8 use may be causing paranoia given fairly rapid improvement of this during his inpatient admission, but he remained in precontemplative stage of change and declined any additional resources or services for this. Medication changes included initiation of Depakote for mood stabilization and irritability and they tolerated this well. Atorvastatin was also initiated due to elevated cholesterol and his desire to remain on Seroquel. He declined a support or family session and safety plan was completed prior to discharge. He declined any referrals for additional outpatient providers or referrals due to his plan to move to [place] or return to [place]. He stated he was familiar with both regions and wanted to set up his own aftercare once he decides where he is going to reside. On the day of discharge he stated his mood was "stable" and remained future-oriented including spending time with his friend and ordering pizza to have for dinner together. Day of Discharge Assessment Today the patient voices readiness for discharge. They note improvement in mood and anxiety. They deny thoughts of harm to self or others. Thoughts are organized and they are clinically improved from admission. There is no evidence of psychosis. They improved in the hospital with support and medication adj ustments. They agree to take medications as prescribed and keep follow-up appointments. At the time of the discharge they are deemed to be stable and appropriate for outpatient level of care. They are not deemed to be at imminent risk of harm to self or others. They are aware of emergency and crisis services. Knows to call 911 or go to nearest emergency care center if in a crisis which cannot be handled as an outpatient. Overall, I spent a total of 33 minutes on this case including meeting with the patient, reviewing the chart, nursing report, multidisciplinary team meeting, orders, and documentation. Transition of Care Transition Of Care Record: was reviewed with the patient Advance Directives Advance Directives Information Provided: Yes Advance Directives: No Mental Health Advance Directive: No Advance Directives on File: No Living Will: No Power of Timber Selector: No Advance Directives Reason:: Declines as Mental Health Visit. Suicide Risk Level Suicide Risk Level Comments: Acute risk is low given improvement in mood and denial of SI, lack of access to lethal means, hopefulness and improvement in psychosis. Chronic risk is moderate given multiple non-modifiable risk factors: psychiatric co-morbid diagnoses, periods of impulsivity, prior attempt, emotional reactivity, prior psychiatric hospitalizations, poor social support, mood disorder but also with protective factors including: sense of responsibility to family and social supports, positive coping skills, positive problem solving. Counseled on ways to reduce acute and chronic risk including engaging with outpatient providers (which he agrees to set up once he moves to a new city), using safety plan if needed, utilizing supports, taking medication, and using coping skills. Modifiable risk factors of psychosis and mood lability were addressed during hospitalization through development of new coping skills, safety planning, and medication adjustments. Risk Factors Assessment Male: Yes : Yes Do You Have Access To A Gun?: No Health Problems: No Mental Health Diagnoses: Yes Substance Use Disorders: Yes (history of cocaine use disorder, in early remission; delta 8 use) Previous Attempt: Yes Family History of Suicide: No Previous Psychiatric Hospitalization: Yes Hopelessness: No Protective Factors Assessment Employed: No Stable Relationships: Yes (friend in town) Supportive Family: Yes (brother) Good Rapport with Provider: Yes (PCP) Discharge Data Lab Results 06/11/24 06/11/24 06/11/24 18:20 20:50 21:22 WBC 16.30 H RBC 5.09 Hgb 15.3 Hct 45.0 MCV 88.4 MCH 30.1 MCHC 34.0 RDW Std Deviation 39.7 RDW Coeff of Ashish 12.2 Plt Count 241 MPV 9.2 L Immature Gran % (Auto) 0.3 Neut % (Auto) 33.5 Lymph % (Auto) 60.9 [place] % (Auto) 3.7 Eos % (Auto) 1.0 Baso % (Auto) 0.6 Neut # (Auto) 5.48 Lymph # (Auto) 9.92 H [place] # (Auto) 0.60 H Eos # (Auto) 0.16 Baso # (Auto) 0.09 Immature Gran # (Auto) 0.05 Absolute Nucleated RBC 0.03 Nucleated RBC % (auto) 0.2 Smudge Cells Present Sodium 134 L Potassium 4.6 Chloride 98 Carbon Dioxide 25 Anion Gap 11 BUN 32 H Creatinine 1.27 Est Cr Clr Drug Dosing 74.1 Est GFR ( Amer) 71.7 Est GFR (Non-Af Amer) 61.9 BUN/Creatinine Ratio 25.2 H Glucose 155 H Fasting Glucose Estimat Average Glucose Hemoglobin A1c Calcium 10.6 H Total Bilirubin 0.5 AST 37 ALT 42 Alkaline Phosphatase 66 Total Protein 7.8 Albumin 4.9 Globulin 2.9 Albumin/Globulin Ratio 1.7 Triglycerides Cholesterol LDL Cholesterol, Calc VLDL Cholesterol, Calc HDL Cholesterol Cholesterol/HDL Ratio TSH 3.234 Urine Color Yellow Urine Appearance Clear Urine pH 6.0 Ur Specific [place] 1.019 Urine Protein Negative Urine Glucose (UA) Negative Urine Ketones Negative Urine Blood Negative Urine Nitrite Negative Urine Bilirubin Negative Urine Urobilinogen Negative Ur Leukocyte Esterase Negative Salicylates < 3.0 L Urine Opiates Screen Neg Ur Methadone, Qual Neg Urine Fentanyl Screen Neg Acetaminophen < 3 L Urine Barbiturates Neg Ur Phencyclidine (PCP) Neg U Amphetamin/Meth Scrn Neg MDMA (Ecstasy) Screen Neg U Benzodiazepines Scrn Neg Ur Cocaine Metabolite Neg U Marijuana (THC) Screen Pos H Ethyl Alcohol mg/dL < 10.0 SARS-CoV-2, RNA, NAAT NEGATIVE 06/13/24 06:47 WBC RBC Hgb Hct MCV MCH MCHC RDW Std Deviation RDW Coeff of Ashish Plt Count MPV Immature Gran % (Auto) Neut % (Auto) Lymph % (Auto) [place] % (Auto) Eos % (Auto) Baso % (Auto) Neut # (Auto) Lymph # (Auto) [place] # (Auto) Eos # (Auto) Baso # (Auto) Immature Gran # (Auto) Absolute Nucleated RBC Nucleated RBC % (auto) Smudge Cells Sodium Potassium Chloride Carbon Dioxide Anion Gap BUN Creatinine Est Cr Clr Drug Dosing Est GFR ( Amer) Est GFR (Non-Af Amer) BUN/Creatinine Ratio Glucose Fasting Glucose 132 H Estimat Average Glucose 148 Hemoglobin A1c 6.8 H Calcium Total Bilirubin AST ALT Alkaline Phosphatase Total Protein Albumin Globulin Albumin/Globulin Ratio Triglycerides 190 H Cholesterol 213 H LDL Cholesterol, Calc 138 VLDL Cholesterol, Calc 38 H HDL Cholesterol 37 Cholesterol/HDL Ratio 5.8 H TSH Urine Color Urine Appearance Urine pH Ur Specific [place] Urine Protein Urine Glucose (UA) Urine Ketones Urine Blood Urine Nitrite Urine Bilirubin Urine Urobilinogen Ur Leukocyte Esterase Salicylates Urine Opiates Screen Ur Methadone, Qual Urine Fentanyl Screen Acetaminophen Urine Barbiturates Ur Phencyclidine (PCP) U Amphetamin/Meth Scrn MDMA (Ecstasy) Screen U Benzodiazepines Scrn Ur Cocaine Metabolite U Marijuana (THC) Screen Ethyl Alcohol mg/dL SARS-CoV-2, RNA, NAAT Hospital Course (1) Mood disorder: (2) Paranoia: (3) Bipolar disorder: (4) Marijuana use: (5) Delusions: Plan 06/15/2024: Desires discharge today. 06/14/2024: Continue current medications and tx plan. Depakote level in AM. 06/13/2024: Continue current medications and tx plan 06/12/2024: The patient was admitted to the [facility] ([facility] mental health unit) on q15 min checks (behavioral with suicide precautions) for safety. The patient will participate in group, recreational, and milieu therapies and will be offered additional individual and family sessions as clinically appropriate. -Continue Seroquel 600mg HS -Seroquel 100mg BID prn for agitation/psychosis -Start Depakote DR 250mg qAM and 500mg HS -Fasting lipid panel and glucose, HbA1c in the morning Mental Health & Subst Abuse Tx Therapist Name of Therapist: n/a Waste Treatment Operator Name of Waste Treatment Operator: n/a Post Discharge Appointments Primary Care Physician Name Of Family Doctor/PCP: none Discharge Plan Discharge Items Patient Disposition: Home - Self-Care Reason For Visit: BIPOLAR DISORDER Discharge Diagnosis: Bipolar Affective Disorder Activity: Resume your previous activity Non-emergency contact: Primary Care Provider Call non-emergency contact if: you have any medication questions and your symptoms worsen Follow-up/Referrals: PCP,NO [Primary Care Provider] - Diet: Regular Addtl Attending Provider Instructions: SPECIAL CARE INSTRUCTIONS: 1. Follow through with your scheduled aftercare appointments. If unable to keep an appointment, please call to reschedule. 2. Take your medication only as prescribed. Medication should not be changed or stopped without the approval of your doctor. In the event of worsening symptoms or concerns about side effects, contact your doctor immediately. 3. Utilize new healthy coping skills, anger management skills, and stress management skills learned during your hospitalization. Journal feelings and process them with a support person. Identify stressors or situations that may result in relapse, deterioration or inappropriate behaviors and develop a plan to deal with those issues. 4. If your coping skills are ineffective and you are in crisis, contact your outpatient providers for direction. If unable to reach your providers, please call the [facility] CRISIS LINE AT , go to the [facility] walk-in center at [address], [place], or go to the closest Emergency Room. 5. Avoid alcohol and un-prescribed drugs. 6. You have been provided with the Mental Health Advance Directives Pamphlet for your review. 7. Your condition is stable for discharge to outpatient level of care, but recovery is an ongoing process. Ifthoughts to harm yourself or others return, follow the safety plan developed during your stay. Planning for a safe return home includes securing weapons. Our treatment team recommends weaponsbe removed from the home until your outpatient provider reassesses your progress. In rare cases where the items themselvescannot be removed, guns and ammunitionshould be secured separatelyand keys stored by a reliable personoutside of the home. If you were admitted on an involuntary commitment, the police or other legal authorities may be involved in this process. AFTERCARE APPOINTMENTS: * Please call your insurance company prior to your scheduled appointment to confirm your aftercare providers are covered. Take your insurance information to your appointments. WHO TO CALL AND WHEN: Medical Emergencies: For questions or emergencies related to your hospital stay, please contact the Inpatient Behavioral Health Unit at [phone]. A digital project manager is on-call 15/06 for the Behavioral Health Unit for emergencies At any time you feel your situation is an emergency, you may also call 911 immediately. National Crisis Hotline: 694 Pending Studies at Discharge: No Stand-Alone Forms: My PayOrPass, Smoking Cessation Medications and DC Order Prescriptions: New atorvastatin 10 mg Tablet 10 mg PO QAM 30 Days Qty: 30 0RF divalproex 250 mg Tablet,Delayed Release (Dr/Ec) 250 mg PO QAM 30 Days Qty: 30 0RF divalproex 500 mg Tablet,Delayed Release (Dr/Ec) 500 mg PO HS 30 Days Qty: 30 0RF metformin 500 mg Tablet Extended Release 24 Hr 500 mg PO QDD 30 Days Qty: 30 0RF Continued quetiapine 300 mg tablet 600 mg PO HS 30 Days Qty: 60 0RF omeprazole 40 mg capsule,delayed release(DR/EC) 40 mg PO QAM 30 Days Qty: 30 0RF tamsulosin 0.4 mg capsule 0.4 mg PO DAILY 30 Days Qty: 30 0RF lisinopril 40 mg tablet 40 mg PO DAILY 30 Days Qty: 30 0RF Discharge Orders: Discharge Order (Routine); Ordered 06/15/24 Ordered By: Brittany Nelson/Other Patient Handouts: Exercise: Why Fitness Matters, Diabetes: Meal Planning, Type 2 Diabetes Admission Data Admit Date/Time: 06/11/24 23:32 Attending Provider: Brittany Rendon Admit Provider: Brittany Rendon Primary Care Provider: PCP,NO Other Interventions: Discharge Summary Assessment (RN) Last Done: 06/15/24 08:14 Coding Level of Care Code 67273 D/C day mgmt > 30 min Diagnoses Mood disorder F39 Paranoia F22 Bipolar disorder F31.62 Active/Remission status: currently active Current bipolar episode type: mixed Current episode severity: moderate Marijuana use F12.90 Delusions F22
[2024-06-16 13:47] LABS: Marijuana Quant, GCMS Urine 43 ng/mL (<5)
== END 2024-06-15 12:06 | disposition home or self-care (01) | DRG 885 ==
LOC: ED 17:49 → 3S 23:52